=== PATIENT | female | born 1950 | race Caucasian/White ===

== ENCOUNTER → 2024-01-05 09:00 | Outpatient (REF) | payer MEDICARE, OTHER, SELFPAY | LOC: DHCBC MAIN 09:00 | PROVIDERS: ATTENDING PHYSICIAN Internal Medicine; FAMILY PHYSICIAN Family Medicine | DX: I35.1 Nonrheumatic aortic (valve) insufficiency (principal); I10 Essential (primary) hypertension; I77.810 Thoracic aortic ectasia; I34.0 Nonrheumatic mitral (valve) insufficiency | CPT/HCPCS: 93306 ==

== ENCOUNTER → 2024-05-26 11:33 | Outpatient (REF) | payer MEDICARE, OTHER, SELFPAY ==
[2024-05-26 12:14] LABS: % Basophils 1.2 % (0-2); % Eosinophils 1.2 % (0-6); % Immature Granulocytes 0.2 % (0-0.5); % Lymphocytes 23.3 % (20.5-51.1); % Monocytes 7.1 % (1.7-9.3); Absolute Basophils 0.1 10^3/uL (0-0.2); Absolute Eosinophils 0.1 10^3/uL (0-0.7); Absolute Monocytes 0.3 10^3/uL (0.1-0.6); Absolute Neutrophils 2.8 10^3/uL (1.4-6.5); Hematocrit 37.9 % (37.0-47.0); Hemoglobin 13.3 g/dL (12.0-16.0); Mean Corp Hgb Conc. 35.1 g/dL (33.0-37.0); Mean Corpuscular Hgb 30.9 pg (27.0-31.0); Mean Corpuscular Volume 87.9 fL (81.0-99.0); Mean Platelet Volume 9.7 fL (7.4-10.4); Nucleated Red Blood Cells % 0 %; Platelet Count 208 10^3/uL (130-400); Red Blood Cell Count 4.31 10^6/uL (4.20-5.40); Red Cell Dist. Width 12.6 % (11.5-14.5); White Blood Cell Count 4.2 10^3/uL (4.8-10.8)
[2024-05-26 12:40] LABS: ALT (SGPT) 20 U/L (0-35); AST (SGOT) 31 U/L (14-36); Albumin 4.3 g/dl (3.5-5.0); Alkaline Phosphatase 57 U/L (38-126); Blood Urea Nitrogen 13 mg/dl (7-17); Calcium 9.3 mg/dl (8.4-10.2); Carbon Dioxide 30 mmol/L (22-30); Chloride 101 mmol/L (98-107); Glucose 85 mg/dl (70-99); HDL Cholesterol 81 mg/dl; LDL Cholesterol, Calculated 95 mg/dl; Potassium 3.9 mmol/L (3.5-5.1); Sodium 135 mmol/L (135-145); Total Bilirubin 0.7 mg/dl (0.2-1.3); Total Cholesterol 184 mg/dl (50-199); Total Protein 6.4 g/dl (6.3-8.2); Triglyceride 43 mg/dl (10-149); Very Low Density Lipoprotein 8 mg/dl (0-30); eGFR > 60.00
[2024-05-26 13:11] LABS: TSH 0.99 uIU/ml (0.47-4.68)
[2024-05-28 13:05] LABS: Alpha 1 Globulin 0.22 g/dL (0.19-0.46); Alpha 2 Globulin 0.57 g/dL (0.48-1.05); Free Kappa Light Chains,Quant 8.17 mg/L (3.30-19.40); Free Lambda Light Chains,Quant 9.91 mg/L (5.71-26.30); IgA 79 mg/dL (68-408); IgG 607 mg/dL (768-1632); IgM 28 mg/dL (35-263); Immunofixation Electrophoresis IFE Done; Kappa/Lambda Fr Light Ratio 0.82 (0.26-1.65); Total Protein-Electrophoresis 6.3 g/dL (6.3-8.2)
== END ==
LOC: REG 11:33
PROVIDERS: ATTENDING PHYSICIAN Family Medicine
DX: I10 Essential (primary) hypertension (principal); D80.1 Nonfamilial hypogammaglobulinemia; Z79.899 Other long term (current) drug therapy
CPT/HCPCS: 36415; 80053; 80061; 82784; 83521; 84155; 84165; 84443; 85025; 86334

== ENCOUNTER → 2024-08-19 07:45 | Outpatient (REF) | payer MEDICARE, OTHER, SELFPAY | LOC: WDC 07:45 | PROVIDERS: ATTENDING PHYSICIAN Obstetrics & Gynecology; FAMILY PHYSICIAN Family Medicine | DX: Z12.31 Encounter for screening mammogram for malignant neoplasm of breast (principal) | CPT/HCPCS: 77063; 77067 ==

== ENCOUNTER 2024-12-27 06:17 | Day surgery (SDC) | payer MEDICARE, OTHER, SELFPAY | END 2024-12-27 14:51 | disposition home or self-care (01) | LOC: GI 06:17 | PROVIDERS: ATTENDING PHYSICIAN Internal Medicine | DX: Z12.11 Encounter for screening for malignant neoplasm of colon (principal); K57.30 Diverticulosis of large intestine without perforation or abscess without bleeding; K63.5 Polyp of colon | CPT/HCPCS: 45385; 88305 ==

== ENCOUNTER → 2025-02-18 07:58 | Outpatient (REF) | payer MEDICARE, OTHER, SELFPAY | LOC: HWRAD 07:58 | PROVIDERS: ATTENDING PHYSICIAN Orthopaedic Surgery; FAMILY PHYSICIAN Family Medicine; OTHER PHYSICIAN Obstetrics & Gynecology | DX: R93.89 Abnormal findings on diagnostic imaging of other specified body structures (principal) | CPT/HCPCS: 76830; 76856 ==

== ENCOUNTER → 2025-03-08 13:04 | Outpatient (REF) | payer MEDICARE, OTHER, SELFPAY | LOC: RAD 13:04 | PROVIDERS: ATTENDING PHYSICIAN Obstetrics & Gynecology; FAMILY PHYSICIAN Family Medicine | DX: R19.00 Intra-abdominal and pelvic swelling, mass and lump, unspecified site (principal) | CPT/HCPCS: 71260; 74177; Q9967 ==

== ENCOUNTER 2025-03-15 06:24 | Day surgery (SDC) | payer MEDICARE, OTHER, SELFPAY ==
[2025-03-11 14:05] VITALS: BMI 19.1
--- NOTE | 2025-03-14 14:56 | W.CON.GYNONC ---
Chief Complaint
-
pelvic mass
History of Present Illness
74�year�old menopausal woman presenting for consultation regarding recently identified pelvic mass. Patient apparently
had complaints of back pain and this was further evaluated with an MRI.
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
osteoarthritis is noted degenerative subarticular marrow edema has developed. During the study a left adnexal mass was identified
6.3 x 5.5 cm, this mass was not present on the previous MRI exam. There is atrophy with fatty infiltration of the left and right
gluteus minimus muscles, there is atrophy with fatty infiltration in the anterior aspect of right gluteus medius muscle.
She was then sent to her conductor sleeping car Dr. Hua. She apparently sees her conductor sleeping car regularly, this mass was not present
previously on exam but could be palpated on exam now.
Ultrasound at [facility] February 18, 2025 shows uterus 5.7 cm, myometrial texture is within normal limits endometrium 1
mm in thickness. There is a hypoechoic mass in the left adnexa measuring 6.4 x 5.9 x 3.4 cm with a smooth outer contour. There
is internal vascularity present. Considered intermediate risk for ovarian carcinoma. Right ovary measures 1.4 cm.
Tumor markers CA125 was 34, CEA 2.4,
There is a CT of chest abdomen and pelvis done also at [facility], the study shows ascending aorta at 3.8 cm,
descending thoracic aorta 2.8 cm, liver spleen gallbladder pancreas are unremarkable, abdominal aorta is normal caliber there is
normal appendix and terminal ileum and moderate fecal material in the colon. There is mild free fluid in the pelvis, there is evidence
of a left adnexal mass with solid and cystic component, the solid component has a density of 26 Hounsfield units, considered to be
malignant until proven otherwise. The cystic component has a density of 1.3 Hounsfield unit. Bladder is unremarkable.
Past medical history significant for hypertension,
Past surgical history significant for orthopedic surgeries including thumb surgery, wrist fracture surgery, as well as right inguinal
hernia surgery, InterStim placement for rectal incontinence
Meds
Collagen�(Bovine) 03/09/2025 0 as�directed
estradiol�0.01%�(0.1�mg/gram)�vaginal�cream 03/09/2025 0 as�directed
lisinopril�20�mg�tablet 03/09/2025 0 1�p.o.�q.�day
lisinopril�20�mg�hydrochlorothiazide�12.5�mg tablet 03/09/2025 0 1�p.o.�q.�day
Probiotic 03/09/2025 0 as�directed
Sutab�1.479�0.188�0.225�gram�tablet 03/09/2025 0 as�directed
valacyclovir�500�mg�tablet 03/09/2025 0 2�p.o.�twice�a�day (BID)
Vitamin�B12 03/09/2025 0 as�directed
Vitamin�D3 03/09/2025 0 as�directed
Social history, she denies tobacco drug or marijuana use, drinks alcohol seldom, she is retired, volunteers for [employer]
Family history is negative for any malignancy in immediate family members, grandmother had bladder cancer with bone metastasis
Patient is , seldom sexually active but denies any any pain or discomfort or bleeding from intercourse.
She is up�to�date with mammography almost annually
She has had a colonoscopy within the last 10 years which was negative
Patient is active physically including running cycling and core exercises
Medical History
Allergies
Allergies reflect when allergies were last updated in [employer].
prochlorperazine Allergy (Verified 03/10/25 12:48)
throat closed
Physical Exam
Physical Exam
Physical Exam
Pelvic Examination:
External normal labia, urethra, anus.
Vagina: Normal mucosa.
Cervix: normal appearance, no discharge.
Uterus: normal size.
Adnexa: There is firm solid fullness involving left adnexa, seems to be adherent to the posterior cul�de�sac, this is not fixed to the
pelvic sidewall, I attempted to elevated out of the pelvis, this caused significant pain or discomfort for the patient
RVE: no masses or nodularity within the lumen of the rectal vault or adjacent to the rectum.
General: Well developed, well nourished patient. In no acute distress.
Neck: No thyromegaly. No cervical lymphadenopathy.
Lungs: Clear to auscultation. Good air movement bilaterally.
Cardiac: Regular rate. Regular rhythm. No murmurs appreciated.
Right Breast: No masses or dimpling. No nipple discharge.
Left Breast: No masses or dimpling. No nipple discharge.
Abdomen: Abdomen is soft. Non�tender to palpation. Non�distended.
Extremities: No edema.
Hematologic/Lymphatic: No palpable lymphadenopathy.
Musculoskeletal: Normal range of motion. Strength and Tone are normal.
Skin:Non�jaundiced. No petechia. No purpura.
Neurologic: Speech is fluent. Normal gait and station. Cranial nerves intact.
Results
-
Diagnostic Imaging Report
SignedOrder #:[id number]
Exams: CT Chest/abd/pel W Iv Cont
SCANNING PARAMETERS: CT of the chest, abdomen and pelvis with intravenous contrast material was obtained. Automated exposure control was used.
INDICATION: Intra-abdominal and pelvic swelling. Mass. Lump.
COMPARISON EXAMINATION: Chest x-ray 01/30/2022, outside CT of the chest 04/23/2019. Report of outside MRI of the pelvis 02/07/2025, pelvic ultrasound 02/18/2025
FINDINGS:
CHEST:
There are no abnormal pleural or parenchymal pulmonary masses.
There is no significant parenchymal airspace disease.
There is no pleural effusion.
There are no abnormal mediastinal masses.
There is no hilar lymphadenopathy.
There is no mediastinal lymphadenopathy.
There is no axillary lymphadenopathy.
There is mild dependent change in the lung bases probably atelectasis.
The ascending aorta measures 3.8 cm at the level of the pulmonary trunk. The descending thoracic aorta measures 2.8 cm at the same level.
Abdomen and pelvis: The liver, spleen, gallbladder and pancreas are unremarkable. The adrenal glands and kidneys are unremarkable. The abdominal aorta is normal caliber. No significant lymphadenopathy is noted. Bowel loops are normal caliber. The
terminal ileum and appendix are within normal limits. There is moderate fecal material in the colon. There is mild diverticulosis. Oral contrast has reached the rectum.
There is mild free fluid in the pelvis.
There is a left adnexal mass with solid and cystic components collectively measuring approximately 7.7 x 5.7 cm. This is adjacent to the left side of the uterus. The solid component has density of 26 Hounsfield units on early enhancement. On delayed
enhancement it has a density of 48 Hounsfield units. The cystic component has density of 1.3 Hounsfield units and 1 Hounsfield unit on early and delayed enhancement.
Osseous structures of the chest, abdomen and pelvis show a less than grade 1 anterolisthesis of L4-L5. There is mild degenerative disease. There is a mild scoliosis. There is a mild T5 compression fracture. This is stable.
The urinary bladder is unremarkable.
IMPRESSION: Known left adnexal mass as described above. This is felt to be malignant until proven otherwise. Associated cystic component versus new left ovarian cyst. See above
No evidence of acute or metastatic disease of the chest, abdomen and pelvis..
Ascending aortic ectasia. Stable from 2019
Moderate fecal material throughout the colon.
Mild diverticulosis.
Mild free fluid in the pelvis uncommon in a postmenopausal female. New from prior pelvic ultrasound
In accordance with Act 112, known as the Patient Test Results Information Act, a letter will be sent to the patient which notifies the patient that a significant abnormality may exist. The letter will be sent within approximately 20 days of the
date the results were sent to the ordering health care practitioner.
Electronically signed by Casi Delgado DO, 03/08/2025 6:22 PM
Data Reviewed
-
Diagnostic Radiology: Image personally visualized and interpreted
CT Scan: Image personally visualized and interpreted
Medical Tests (Nuc Med, Echo, EKG etc): Image personally visualized and interpreted
Lab Data: Labs Reviewed
Impression / Plan
-
This patient has a 6 to 7 cm mostly solid mass involving left ovary incidentally identified at the time of an MRI of the pelvis for
evaluation of right hip pain and back pain. She has had longstanding history of back pain. Based on clinical examination the mass
appears not to be fixed to the pelvic sidewall and has minimal to moderate mobility, the exam is possibly suggestive of a fibroma
but other histologies obviously cannot be excluded. She has a normal CA125 and CEA which is reassuring. On CT imaging she
does not have any evidence of retroperitoneal adenopathy ascites or upper abdominal disease or carcinomatosis. There is no
significant associated GI symptoms. Overall she appears to be a healthy and fit individual who is active and has maintained good
health care throughout.
My recommendation is for surgery for management. Surgery will likely include robotic assisted exploration of the abdomen, total
laparoscopic hysterectomy bilateral salpingo�oophorectomy with pelvic washings. This mass will be placed in a endoscopic bag,
probably will be retrieved through a low transverse mini laparotomy incision. We discussed pros and cons of extraction of the
specimen through the vagina versus abdominal incision, because of prior history of rectal incontinence and the fact that the patient
is petite and has a small caliber vagina I feel that it is in her best interest to use a abdominal incision for extraction of specimen.
Frozen section will be done. If there is any evidence of malignancy we will likely go ahead and perform additional staging procedures
to include but not limited to multiple peritoneal biopsies, right diaphragmatic washing, omentectomy, pelvic and periaortic lymph
node dissection with the intent to perform complete and comprehensive staging and cytoreduction. There is a possibility of need for
bowel resection specifically the sigmoid colon with anastomosis.
Risks of surgery including infection bleeding injury to adjacent organs DVT pulmonary embolism and cardiovascular complications
were discussed and reviewed. Patient understands that if malignancy is discovered she may require additional adjuvant treatment
which will be discussed following finalization of pathology
Patient is requested to see her primary care physician and obtain medical clearance prior to surgery
Patient informs me that she has been seeing a heel seam rubber, Dr. Cesar who has followed her for enlarged aorta most recently seen in
November, I will obtain a letter from him from his most recent visit.
[2025-03-15] VITALS (10 sets, daily range): BP systolic 100–136; BP diastolic 60–80; BMI 19.1; BMI 20.5
[2025-03-15] MEDS: CELEBREX 200 MG PO (12:31)
[2025-03-15] MEDS: TYLENOL 1000 MG PO (12:32)
[2025-03-15] MEDS: NEURONTIN 300 MG PO (12:32)
[2025-03-15] MEDS: NORMOSOL-R/PLASMALYTE-A 1000 IV (12:42)
[2025-03-15] MEDS: EMEND 40 MG PO (13:02)
[2025-03-15] MEDS: HEPARIN 5000 UNITS SC (14:15)
--- NOTE | 2025-03-15 18:15 | OR.RPT ---
Operative Report
Operative Report
Date of procedure March 15, 2025
Preoperative diagnosis: Complex mass left lower quadrant
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
Surgeon: Jos Barksdale
Assist: Kim Caal PA-C
Procedure:
Robotic assisted total laparoscopic hysterectomy, bilateral salpingo-oophorectomy, omentectomy, peritoneal biopsies and washings
TAP block
Anesthesia: General Endotracheal intubation
Estimated blood loss: 50 cc
Complication: None
Specimen: Uterus, cervix and right ovary and tube, left tube and ovary, pelvic washings: Omentum, right and left paracolic gutter peritoneal biopsy
Procedure in detail: This patient was taken to the operating room for recently discovered complex mass arising from left lower quadrant. Upon arrival to the operating room she was placed in supine position, general anesthesia was administered and
she was intubated without any difficulty she was placed in lithotomy position using yellowfin stirrups. Her arms were wrapped in foam and they were tucked along the patient's side. All joints were examined in order to make sure there is no
pressure. Next timeout procedure was carried out she received Ancef 2 g and Flagyl 500 mg. She was prepped in the abdomen perineum and vagina and upper thighs and draped. Hathaway catheter was inserted under sterile conditions in the bladder. Using
Acosta retractor the cervix was identified and grasped on the anterior lip with single-tooth tenaculum cervical os was scarred and stenotic, I used a #11 blade to create an opening in was able to advance and dilate the cervical canal up to about 4 cm.
I had to pull this out and reposition it for more accurate positioning later during the surgery and a 2.5 cm DANIA ring was used around the cervix. Vaginal cuff occluder was insufflated. Our attention was turned abdominally. Veress needle was
inserted just below left subcostal margin and insufflation with CO2 gas was performed up to pressure of 15 mmHg. I then placed an 8 mm excised robotic port in the peritoneal cavity and noted that that there was distention of stomach, it appeared
that the Veress needle had gone past gastrocolic omentum and perhaps distended the lesser sac. Insufflation was redirected into peritoneal cavity and quickly pneumoperitoneum was accomplished. Stomach was suctioned by anesthesia. We were able to
place 8 mm XI robotic ports on the right and left upper quadrants as well as right and left lateral abdomen. There was small bruising close to 2 of the short gastric vessels, there was no active bleeding. I did ask Dr. Jones from general surgery
to look at this and he concurred that no intervention needs to occur here and we should just check this area at the end of the procedure. Following this Block was performed under direct visualization injecting ropivacaine and Decadron equally in
right and left lateral abdomen 2 fingerbreadths below subcostal margins. We then placed the patient in Trendelenburg at 28 degrees, robotic system was docked. I was able to examine the pelvis washings were collected and submitted to pathology.
Uterus was elevated, right and left round ligaments were sealed and divided anterior and posterior leaves of the broad ligament were dissected open. Retroperitoneal spaces were dissected open and a window was created between ureters and IP
ligaments. There was significant tortuosity to external iliac and common iliac vessels. Both IP ligaments were sealed and divided the left tube and ovary was detached from the uterus and left in the posterior cul-de-sac. Bladder flap was sharply
development advanced below the cervical vaginal junction. Uterine arteries followed by cardinal ligaments followed by uterosacral ligaments were sealed and divided circumferential incision was made around the DANIA ring until the uterus was
completely detached uterus and cervix and right tube and ovary was removed and submitted to pathology. A 10/15 endoscopic bag was introduced through the vagina and the specimen was placed in the bag. We remove the specimen through the vagina and
submitted that for pathology for frozen section. In the meantime I performed biopsies of right and left paracolic gutters where there was previous adhesions. Adhesions of the omentum to the left gutter was taken down. There were adhesions also
from omentum to the anterior abdominal wall which was taken down. There was evidence of a prior right femoral hernia repair with mesh and this was uninvolved. Infracolic omentum was brought into view and omentectomy was performed sealing a number
of omental vessels and the omentum was extracted through the vagina. Vaginal cuff was closed with 0 Vicryl suture ligature in a [id number] fashion incorporating uterosacral ligaments at both apices. V-Loc suture was used to close the vaginal
cuff starting from right going to the left side and back to the right side. Good hemostasis was present altogether there were no peritoneal implants. Frozen section reveals evidence of a stromal tumor favoring benign fibroma. Because of this no
additional staging procedures was done the robotic system was then undocked and the patient was placed back in supine position I was able to examine both diaphragms which were normal stomach was normal there was no evidence of bleeding and no
evidence of leakage of any contents into the peritoneal cavity I did I use a vessel sealer and sealed 3 short gastric vessels in the area where there was bruising and ecchymosis present. I did not encounter any active bleeding. Following this all
instruments were removed and pneumoperitoneum was released. I did remove the Hathaway catheter. I examined the vagina, there was a 1 cm very superficial laceration at the level of perineal body which was repaired with a [id number] suture of 3-0
Vicryl. Patient was awakened extubated and returned back to recovery room stable awake and extubated condition. Counts of laps instruments and needle was correct x 2. I was present and scrubbed for entire procedure as dictated above
Disposition: To PACU stable awake and extubated
[2025-03-15] MEDS: TYLENOL 650 MG PO (18:43)
[2025-03-15] MEDS: ZOFRAN 4 MG IV (19:45)
== END 2025-03-15 20:55 | disposition home or self-care (01) ==
LOC: SDS 06:24
PROVIDERS: ATTENDING PHYSICIAN Obstetrics & Gynecology Gynecologic Oncology
DX: R19.04 Left lower quadrant abdominal swelling, mass and lump (principal); D28.2 Benign neoplasm of uterine tubes and ligaments; I70.8 Atherosclerosis of other arteries; N80.201 Endometriosis of right fallopian tube, unspecified depth; D27.1 Benign neoplasm of left ovary; I87.8 Other specified disorders of veins; D36.7 Benign neoplasm of other specified sites
CPT/HCPCS: 58571; 88305; 88307; 88332; 86900; 86901; 88112; 88331; C1776

== ENCOUNTER → 2025-07-12 09:23 | Outpatient (REF) | payer MEDICARE, OTHER, SELFPAY ==
[2025-07-12 09:59] LABS: Hematocrit 39.3 % (37.0-47.0); Hemoglobin 13.0 g/dL (12.0-16.0); Mean Corp Hgb Conc. 33.1 g/dL (33.0-37.0); Mean Corpuscular Volume 91.2 fL (81.0-99.0); Nucleated Red Blood Cells % 0 %; Platelet Count 204 10^3/uL (130-400); Red Cell Dist. Width 13.1 % (11.5-14.5)
[2025-07-12 10:24] LABS: Glycohemoglobin (HgbA1c) 5.5 % (4.0-5.6)
[2025-07-12 10:25] LABS: ALT (SGPT) 19 U/L (0-35); AST (SGOT) 25 U/L (14-36); Albumin 4.4 g/dl (3.5-5.0); Alkaline Phosphatase 50 U/L (38-126); Blood Urea Nitrogen 15 mg/dl (7-17); Calcium 9.4 mg/dl (8.4-10.2); Carbon Dioxide 29 mmol/L (22-30); Chloride 102 mmol/L (98-107); Glucose 94 mg/dl (70-99); HDL Cholesterol 78 mg/dl; LDL Cholesterol, Calculated 114 mg/dl; Potassium 4.1 mmol/L (3.5-5.1); Sodium 137 mmol/L (135-145); Total Protein 6.5 g/dl (6.3-8.2); Very Low Density Lipoprotein 13 mg/dl (0-30); eGFR > 60.00
[2025-07-12 10:43] LABS: Vitamin D, 25-OH*** 40.1 ng/mL (30-80)
[2025-07-12 11:16] LABS: Vitamin B12 228 pg/ml (239-931)
[2025-07-15 02:37] LABS: Albumin 4.01 g/dL (3.75-5.01); Free Kappa Light Chains,Quant 9.63 mg/L (3.30-19.40); Free Lambda Light Chains,Quant 10.30 mg/L (5.71-26.30); Immunofixation Electrophoresis IFE Done; Kappa/Lambda Fr Light Ratio 0.93 (0.26-1.65); Total Protein-Electrophoresis 6.0 g/dL (6.3-8.2)
== END ==
LOC: REG 09:23
PROVIDERS: ATTENDING PHYSICIAN Family Medicine
DX: Z01.89 Encounter for other specified special examinations (principal); Z79.899 Other long term (current) drug therapy; R53.83 Other fatigue; Z13.1 Encounter for screening for diabetes mellitus
CPT/HCPCS: 36415; 80053; 80061; 82306; 82607; 82784; 83036; 83521; 84155; 84165; 84443; 85025; 86334

== ENCOUNTER → 2025-09-12 13:09 | Outpatient (REF) | payer MEDICARE, OTHER, SELFPAY | LOC: WDC 13:09 | PROVIDERS: ATTENDING PHYSICIAN Obstetrics & Gynecology; FAMILY PHYSICIAN Family Medicine | DX: Z12.31 Encounter for screening mammogram for malignant neoplasm of breast (principal) | CPT/HCPCS: 77063; 77067 ==